=== PATIENT | male | born 1970 | race Caucasian/White ===

== ENCOUNTER 2019-05-21 12:12 | Emergency (ER) | payer OTHER ==
[~2019-05-21] VITALS: Ht 167.6 cm; Wt 83.9 kg
[2019-05-21] MEDS ORDERED: DEPAKOTE ER250 MG (12:45)
[2019-05-21] MEDS ORDERED: DEPAKOTE ER500 MG (12:45)
[2019-05-21] MEDS ORDERED: TOPROL XL25 MG (12:46)
[2019-05-21] MEDS ORDERED: NAPR500T14 (12:46)
[2019-05-21] MEDS ORDERED: MEDROL4 MG (12:46)
[2019-05-21] MEDS ORDERED: TOPROL XL50 M1 PO (15:12)
== END 2019-05-21 15:48 | disposition home or self-care (01) ==
LOC: ER 12:12
DX: R00.2 Palpitations (principal)